=== PATIENT | male | born 1965 | race Caucasian/White ===

== ENCOUNTER 2019-09-05 09:02 | Emergency (ER) | payer OTHER ==
[~2019-09-05] VITALS: Ht 180.3 cm; Wt 97.5 kg
[2019-09-05 09:36] LABS: ABSOLUTE NEUTROPHILS 2.7 thou/uL (1.4-8.2); BASOPHILS 0.5 % (0.0-2.0); HEMATOCRIT 46.9 % (42.0-52.0); HEMOGLOBIN 15.7 gm/dL (14.0-18.0); LYMPHOCYTES 31.2 % (24.0-44.0); MCH 29.1 pg (26.0-34.0); MCHC 33.5 g/dL (28.0-37.0); MONOCYTES 7.8 % (1.0-8.0); PLATELET COUNT 214 thou/uL (150-400); POLYS 54.5 % (36.0-66.0); RDW 13.3 % (10.5-14.5); WBC 4.9 thou/uL (4.0-11.0)
[2019-09-05 09:43] LABS: ANION GAP 8 mmol/L (7-16); BUN 13 mg/dL (7-18); CALCIUM 9.3 mg/dL (8.5-10.1); CHLORIDE 103 mmol/L (98-107); CO2 31 mmol/L (21-32); CREATININE 1.1 mg/dL (0.7-1.3); GLUCOSE 73 mg/dL (74-106); POTASSIUM 3.8 mmol/L (3.5-5.1); SODIUM 142 mmol/L (136-145)
[2019-09-05 09:52] LABS: MAGNESIUM 2.2 mg/dL (1.8-2.4); TROPONIN-I <0.06 ng/mL (<0.06)
[2019-09-05] MEDS ORDERED: LISINOPRIL10 MG PO (10:44)
[2019-09-05 11:15] VITALS: BP 167/103
--- NOTE | 2019-09-05 16:17 | EKG ---
[facility] [place] [address] ELECTROCARDIOGRAM REPORT Name: DONOVAN JUSTIN Room #: DEP [facility]..#: [id number] Admission: 09/05/19 Attend Phys: Discharge: 09/05/19 Date of : 67 Report #: [id number] THIS REPORT FOR: cc: FAM - No family physician/PCP FAM - No family physician/PCP Roderick Chester MD ~ THIS REPORT FOR: //name// [facility] ED Test Date: 2019-09-05 Test Time: 09:17:21 Pat Name: DONOVAN JUSTIN Department: Room: Gender: Mail Processor: MEGAN : 1965 Requested By: Sheila Trejo Order Number: [id number] MD: Roderick Chester Measurements Intervals Schroeder Rate: 54 P: 30 AK: 183 QRS: 2 QRSD: 113 T: 36 QT: 427 QTc: 405 Interpretive Statements Sinus rhythm Anteroseptal infarct, age indeterminate No previous ECG available for comparison Electronically Signed On 09-05-2019 16:16:18 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
== END 2019-09-05 11:15 | disposition home or self-care (01) ==
LOC: ER 09:02
PROVIDERS: Emergency Medicine Emergency Medical Services
DX: I10 Essential (primary) hypertension (principal)